=== PATIENT | male | born 1950 | race Caucasian/White ===

== ENCOUNTER → 2019-06-21 07:51 | Outpatient (CLI) | payer MEDICARE, BC, SELFPAY ==
--- NOTE | 2019-06-21 07:55 | US_ITS ---
STUDY: SCROTUM ULTRASOUND REASON FOR EXAM: Male, 68 years old. HYDROCELE TECHNIQUE: Ultrasound evaluation of the scrotum was performed with color Doppler and static barnes-scale imaging. COMPARISON: None. FINDINGS: RIGHT TESTICLE INTRATESTICULAR: There is a normal size of the right testicle. The right testicle measures 4.6 cm x 2.6 cm x 2.2 cm. There is a homogenous echotexture. There is normal arterial and normal venous vascularity. There is no demonstrated right testicular mass or cyst. EXTRATESTICULAR: The epididymis is normal in size. The epididymis head measures 1.1 cm x 1.1 cm x 0.8 cm. There is normal vascularity of the epididymis. There is no demonstrated epididymal cystic structure. There is a small hydrocele. There is no demonstrated varicocele. There is no demonstrated extratesticular mass or cyst. LEFT TESTICLE INTRATESTICULAR: There is a normal size of the left testicle. The left testicle measures 4.4 cm x 2.3 cm x 2.1 cm. There is a homogenous echotexture. There is normal arterial and normal venous vascularity. There is no demonstrated left testicular mass or cyst. EXTRATESTICULAR: The epididymis is normal in size. The epididymis head measures 1.1 cm x 1 sign by 0.9 cm. There is normal vascularity of the epididymis. There is a well-defined cystic structure within the epididymis, without internal echoes, consistent with an epididymal cyst. This measures 5 mm x 4 mm x 3 mm. There is a small hydrocele. There is no demonstrated varicocele. There is no demonstrated extratesticular mass or cyst. US/Testicular with Arterial Flow IMPRESSION: Small bilateral hydroceles. Small left epididymal cyst. Electronically Signed: Akshat Gomez, at 15:51 EST , Service support ,
== END ==
PROVIDERS: PCP Internal Medicine; Referring Provider Nurse Practitioner Adult Health; Visit Provider Nurse Practitioner Adult Health
DX: N50.811 Right testicular pain (principal)
CPT/HCPCS: 76870; 93976

== ENCOUNTER 2020-07-17 13:54 | Outpatient (RCR) | payer MEDICARE, BC, SELFPAY | END 2020-07-17 23:59 | LOC: IMMUN 13:54 | PROVIDERS: PCP Internal Medicine; Referring Provider Family Medicine; Visit Provider Family Medicine | DX: Z23 Encounter for immunization (principal) | CPT/HCPCS: 0011A; 0012A; 91301 ==